=== PATIENT | male | born 1950 | race Caucasian/White ===

== ENCOUNTER 2016-05-02 07:35 | Day surgery (SDC) | payer OTHER ==
[2016-04-29 11:18] VITALS: BMI 23.9
[2016-05-02] MEDS ORDERED: PROPOFOL 20 ML ONE ×2 (07:50)
[2016-05-02 11:08] VITALS: TEMP 98.5
[2016-05-02 12:07] VITALS: PULSE 72
[2016-05-02 12:12] VITALS: BP 113/68
== END 2016-05-02 11:25 | disposition home or self-care (01) ==
LOC: FASU-ENDO 07:35 → EDSEX 07:35 → FASU-ENDO 11:25
PROVIDERS: ATTEND Internal Medicine Gastroenterology
PROC: 0DJD8ZZ Inspection of Lower Intestinal Tract, Via Natural or Artificial Opening Endoscopic (ICD-10-PCS; principal; 2016-05-02 10:24)
DX: Z80.0 Family history of malignant neoplasm of digestive organs (principal); Z83.71 Family history of colonic polyps

== ENCOUNTER 2021-03-26 12:44 | Observation (INO) | payer OTHER ==
[2021-03-26 14:36] LABS: CALCIUM 9.6 mg/dl (8.5-10); CREATININE 1.6 mg/dl (0.55-1.3)
[2021-03-26 15:11] LABS: BASO % 0.2 % (0-2.0); EOS % 0.1 % (0-4.5); HEMATOCRIT 43.2 % (35.4-49); HEMOGLOBIN 14.6 GM/dL (11.7-16.9); LYMPH % 7.1 % (8-40); MCHC 33.7 g/dl (32.0-35.9); MEAN CELL VOLUME 91.9 fl (80-96); MONO % 5.4 % (3.8-10.2); NEUT % 87.2 % (42.8-82.8); PLATELET COUNT 271 10^3/uL (134-434); RDW 13.3 % (11.9-15.9); WHITE BLOOD COUNT 11.7 K/mm3 (4.0-10.0)
[2021-03-26] MEDS ORDERED: SODIUM CHLORIDE 0.9% 500 ML INFUS.BAG IV ONE ×2 (15:29→17:08)
[2021-03-26] MEDS ORDERED: SODIUM CHLORIDE 1,000 ML IV SCH (15:45)
[2021-03-26 21:46] VITALS: BMI 25.4
[2021-03-26] MEDS ORDERED: ROSUVASTATIN CA 10 MG TABLET (FP) PO SCH (22:00)
[2021-03-27 08:27] LABS: CALCIUM 8.1 mg/dl (8.5-10); MAGNESIUM 1.7 mg/dL (1.8-2.4)
[2021-03-27] MEDS ORDERED: RAMIPRIL 5 MG CAPSULE PO SCH (10:00)
[2021-03-27 10:38] VITALS: BP 133/68; PULSE 76; TEMP 98.6
== END 2021-03-27 11:40 | disposition home or self-care (01) ==
LOC: FER 12:44 → FM/S 20:28
PROVIDERS: ADMIT Internal Medicine; ATTEND Nurse Practitioner Family
PROC: 3E0337Z Introduction of Electrolytic and Water Balance Substance into Peripheral Vein, Percutaneous Approach (ICD-10-PCS; principal; 2021-03-26)
DX: I10 Essential (primary) hypertension (principal); R09.82 Postnasal drip; R09.89 Other specified symptoms and signs involving the circulatory and respiratory systems; R07.0 Pain in throat; N17.9 Acute kidney failure, unspecified; E86.0 Dehydration; Z20.822 Contact with and (suspected) exposure to COVID-19
CPT/HCPCS: 36415; 71045-TC-FY; 80048; 81003; 83735; 84484; 85025; 93005; 96360; 99285-25; C9803; G0378; U0003; U0005